=== PATIENT | female | born 1965 | race Caucasian/White ===

== ENCOUNTER 2018-06-22 17:52 | Inpatient (IN) | payer MEDICAID ==
[~2018-06-22] VITALS: Ht 154.9 cm; Wt 87.7 kg
[2018-06-22 17:58] VITALS: Ht 154.9 cm; Wt 87.7 kg
[2018-06-22 20:41] LABS: microscopic required? NO
[2018-06-22 20:42] LABS: BASOPHIL % 0.5 % (0-2); PLATELET COUNT 145 x10^3mcL (130-400); RED CELL DISTRIBUTION WIDTH 13.1 % (11.5-14.5)
[2018-06-22 20:54] LABS: urine erythrocyte NEGATIVE (NEGATIVE)
[2018-06-22 21:02] LABS: CALCIUM 9.2 mg/dL (8.5-10.1); CARBON DIOXIDE 28.4 mmol/L (21-32); CHLORIDE SERUM 103 mmol/L (98-107); CREATININE SERUM 0.7 mg/dL (0.6-1.0); GFR1 > 60 mL/min; GLUCOSE SERUM 184 mg/dL (74-106); POTASSIUM SERUM 3.5 mmol/L (3.5-5.1); SODIUM SERUM 138 mmol/L (136-145)
[2018-06-22 21:17] LABS: ALKALINE PHOSPHATASE 81 U/L (46-116); ALT/SGPT 32 U/L (14-59); AST/SGOT 22 U/L (15-37); BILIRUBIN TOTAL 0.2 mg/dL (0.20-1.00); FREE T4 0.94 ng/dL (0.76-1.46); TOTAL PROTEIN, SERUM 7.5 g/dL (6.4-8.2)
[2018-06-22 21:18] LABS: ALBUMIN 2.9 g/dL (3.4-5.0)
[2018-06-22] MEDS ORDERED: DEPAKOTE ER500 MG PO (22:41)
[2018-06-22] MEDS ORDERED: PROZ20 PO (22:42)
[2018-06-22] MEDS ORDERED: METFORMIN500 M1 PO (22:43)
[2018-06-22] MEDS ORDERED: PYR50 PO (22:44)
[2018-06-22] MEDS ORDERED: DEPO-PROVER150 MG/M1 IM (22:45)
[2018-06-22] MEDS ORDERED: SYNTHROID0.112 MG PO (22:45)
[2018-06-22] MEDS ORDERED: SEROQUEL100 MG PO (22:47)
[2018-06-22] MEDS ORDERED: SEROQUEL400 M1 PO (22:47)
[2018-06-22] MEDS ORDERED: COL250 PO (22:48)
[2018-06-22] MEDS ORDERED: THERA-M W/MINER1 TAB PO (22:48)
[2018-06-22] MEDS ORDERED: VIACTIV SOFT C1 EACH PO (22:49)
[2018-06-22] MEDS ORDERED: APAP500 MG PO (22:50)
[2018-06-23 00:07] LABS: MAGNESIUM 1.9 mg/dL (1.8-2.4); PHOSPHOROUS 3.5 mg/dL (2.5-4.9)
[2018-06-23 00:14] LABS: CHOLESTEROL/HDL RATIO 2.3
[2018-06-23 00:19] VITALS: BP 93/65
[2018-06-23 04:43] VITALS: BP 112/57
[2018-06-23 06:54] LABS: BASOPHIL % 0.5 % (0-2); PLATELET COUNT 147 x10^3mcL (130-400); RED CELL DISTRIBUTION WIDTH 13.6 % (11.5-14.5)
[2018-06-23 07:12] LABS: CALCIUM 8.7 mg/dL (8.5-10.1); CHLORIDE SERUM 105 mmol/L (98-107); CREATININE SERUM 0.7 mg/dL (0.6-1.0); GFR1 > 60 mL/min; GLUCOSE SERUM 118 mg/dL (74-106); POTASSIUM SERUM 3.9 mmol/L (3.5-5.1); SODIUM SERUM 139 mmol/L (136-145)
[2018-06-23 08:57] VITALS: BP 108/46
[2018-06-23 12:13] VITALS: BP 110/64
[2018-06-23 14:59] VITALS: BP 110/64
== END 2018-06-23 15:32 | disposition home or self-care (01) | DRG 383 ==
LOC: ED 17:52 → DU 22:03
PROVIDERS: Emergency Medicine; Internal Medicine
DX: L03.115 Cellulitis of right lower limb (principal); E44.0 Moderate protein-calorie malnutrition; I45.81 Long QT syndrome; R73.03 Prediabetes; F31.9 Bipolar disorder, unspecified; E03.9 Hypothyroidism, unspecified; G40.909 Epilepsy, unspecified, not intractable, without status epilepticus; Z68.34 Body mass index [BMI] 34.0-34.9, adult; Z79.84 Long term (current) use of oral hypoglycemic drugs; Z66 Do not resuscitate
CPT/HCPCS: 83880; 84439; 85378; 97535-GP; J0690; J7030; Q0092